=== PATIENT | female | born 1955 | race Two or more races ===

== ENCOUNTER 2020-08-13 12:21 | Emergency (ER) | payer MEDICARE, OTHER ==
[~2020-08-13] VITALS: Ht 134.6 cm; Wt 54.7 kg
--- NOTE | 2020-08-13 13:08 | NUR ---
pt has co gi n/v after eating for 2 week. denies cp or sob at this time. was sent from pcp for abnormal ekg. on cardiac montor, family at bedside.
--- NOTE | 2020-08-13 13:32 | NUR ---
MD PACHECO AT BEDSIDE
--- NOTE | 2020-08-13 13:57 | NUR ---
PT AMBULATED TO BATHROOM W UA.
[2020-08-13 14:10] LABS: ALANINE AMINOTRANSFERASE 32 U/L (12-78); ALBUMIN 3.8 g/dL (3.4-5.0); ANION GAP 2 mmol/L (5-15); CALCIUM 8.9 mg/dL (8.5-10.1); CHLORIDE 107 mmol/L (98-107)
[2020-08-13 14:12] LABS: BASOPHILS % (AUTO) 1 % (0-1); EOSINOPHILS % (AUTO) 1 % (1-7); LYMPHOCYTES % (AUTO) 36 % (22-44); MEAN CORPUSCULAR HEMOGLOBIN 31.7 pg (27.0-34.8); MEAN CORPUSCULAR HGB CONC 33.1 g/dL (32.4-35.8); MEAN PLATELET VOLUME 8.2 fL (7.4-10.4); MONOCYTES % (AUTO) 12 % (2-9); NEUTROPHILS % (AUTO) 49 % (42-75); PLATELET COUNT 230 x10^3/uL (130-400); RED BLOOD COUNT 4.38 x10^6/uL (3.82-5.3); RED CELL DISTRIBUTION WIDTH 13.9 % (9.6-15.2)
[2020-08-13 14:13] LABS: ALKALINE PHOSPHATASE 94 U/L (45-117); BILIRUBIN,TOTAL 0.7 mg/dL (0.2-1.0); CREATININE 0.59 mg/dL (0.55-1.02); TOTAL PROTEIN 7.7 g/dL (6.4-8.2)
[2020-08-13 14:15] LABS: MD NO
[2020-08-13 14:18] LABS: MICROSCOPIC NOT IND
[2020-08-13 14:46] VITALS: BP 124/84
--- NOTE | 2020-08-13 15:42 | NUR ---
MD PACHECO UPDATING PT. READY FOR DC
--- NOTE | 2020-08-13 15:43 | NUR ---
Patient given discharge instructions and they have confirmed that they understand the instructions. Patient ambulatory with steady gait.
== END 2020-08-13 15:55 | disposition home or self-care (01) ==
LOC: ED 15:40
DX: R11.2 Nausea with vomiting, unspecified (principal); E11.9 Type 2 diabetes mellitus without complications; R10.9 Unspecified abdominal pain; I10 Essential (primary) hypertension; R00.0 Tachycardia, unspecified
CPT/HCPCS: 36415; 74022; 80053; 81003; 83690; 85025; 93005; 99285